=== PATIENT | female | born 1985 | race Hispanic/Latino ===

== ENCOUNTER 2021-08-10 12:19 | Emergency (ER) | payer SELFPAY ==
[~2021-08-10] VITALS: Ht 144.8 cm; Wt 63.0 kg
[~2021-08-10 12:19] MED LIST: GLYBURIDE5 MG PO; INTEGRA F PO; PRENATABS OR
[2021-08-10 13:00] LABS: URINE BILIRUBIN - DIPSTICK NEGATIVE (NEGATIVE); URINE BLOOD DIPSTICK MODERATE (NEGATIVE); URINE COLOR YELLOW; URINE GLUCOSE - DIPSTICK NEGATIVE (NEGATIVE); URINE KETONE NEGATIVE (NEGATIVE); URINE LEUK ESTERASE NEGATIVE (NEGATIVE); URINE PROTEIN - DIPSTICK TRACE mg/dL (NEG-TRACE); URINE UROBILINOGEN - DIPSTICK 0.2 E.U./dL (0.2)
[2021-08-10 13:03] LABS: URINE NITRITE - DIPSTICK NEGATIVE (Negative)
[2021-08-10 13:09] LABS: URINE SQUAMOUS EPITHELIAL CELL FEW EPI/hpf (0-FEW); URINE WBC 0-2 WBC/hpf (0-5)
[2021-08-10] MEDS ORDERED: IBUPROFEN600 MG PO (16:30)
[2021-08-10 16:40] VITALS: BP 121/64
== END 2021-08-10 16:40 | disposition home or self-care (01) | DRG 552 ==
LOC: ED 12:19
PROVIDERS: Family Medicine
DX: M54.50 Low back pain, unspecified (principal); W10.9XXA Fall (on) (from) unspecified stairs and steps, initial encounter

== ENCOUNTER 2021-09-15 10:12 | Emergency (ER) | payer SELFPAY ==
[~2021-09-15] VITALS: Ht 144.8 cm; Wt 65.9 kg
[~2021-09-15 10:12] MED LIST changes: +IBUPROFEN600 MG PO
[2021-09-15 10:30] VITALS: BP 119/53
[2021-09-15 11:42] LABS: HEMATOCRIT 37.7 % (37.0-47.0); HEMOGLOBIN 12.1 g/dl (12.0-16.0); IMMATURE GRANULOCYTES 0.5 % (0.0-5.0); MEAN CORPUSCULAR HGB 29.5 pG CALC (26.0-32.0); MEAN CORPUSCULAR HGB CONC 32.1 g/dL CAL (32.0-36.0); NEUT# 6.72 thou/uL (2.00-7.15); RED BLOOD COUNT 4.1 mill/uL (4.20-5.60); RED CELL DISTRI WIDTH 13.2 % (11.5-15.5)
[2021-09-15 11:51] LABS: ALKALINE PHOSPHATASE 97 u/l (38-126); BUN 13 mg/dL (7-17); BUN/CREATININE RATIO 23 (12-20 (CALC)); CHLORIDE 103 mmol/l (95-108); CREATININE 0.6 mg/dL (0.5-1.0); GFR > 60 ML/MIN (>=60 (CALC)); GFR FOR AFR.AMER. > 60 ML/MIN (>=60 (CALC)); POTASSIUM 3.8 mmol/l (3.5-5.1); SODIUM 138 mmol/l (137-146)
[2021-09-15 11:55] LABS: ALBUMIN 3.9 g/dL (3.2-5.0); ANION GAP 11 (6-22 (CALC)); BILIRUBIN, TOTAL 0.3 mg/dL (0.0-1.4); CARBON DIOXIDE 28 mmol/l (22-30); SGOT/AST 39 u/l (14-36); TOTAL PROTEIN 7.5 g/dL (6.3-8.2)
[2021-09-15] MEDS ORDERED: CYCLOBENZAPRINE10 MG PO (12:22)
== END 2021-09-15 12:46 | disposition home or self-care (01) | DRG 93 ==
LOC: ED 10:12
PROVIDERS: Emergency Medicine
DX: R25.2 Cramp and spasm (principal); R23.3 Spontaneous ecchymoses

== ENCOUNTER 2023-09-19 22:22 | Emergency (ER) | payer SELFPAY ==
[~2023-09-19] VITALS: Ht 144.8 cm; Wt 54.4 kg
[~2023-09-19 22:22] MED LIST changes: +CYCLOBENZAPRINE10 MG PO
[2023-09-19 22:28] VITALS: BP 126/69
[2023-09-19 22:30] VITALS: BP 116/66
[2023-09-19 22:52] LABS: BASO% 0.5 % (0-3); EOS% 6.3 % (0-8); HEMATOCRIT 38.9 % (37.0-47.0); HEMOGLOBIN 12.7 g/dl (12.0-16.0); IMMATURE GRANULOCYTES 0.3 % (0.0-5.0); LYMPH% 21.7 % (15-41); MEAN CELL VOLUME 92.2 fL CALC (80.0-100.0); MEAN CORPUSCULAR HGB 30.1 pG CALC (26.0-32.0); MEAN CORPUSCULAR HGB CONC 32.6 g/dL CAL (32.0-36.0); MONO% 7.1 % (2-13); NEUT# 7.7 thou/uL (2.00-7.15); NEUT% 64.1 % (42-76); RED BLOOD COUNT 4.22 mill/uL (4.20-5.60); RED CELL DISTRI WIDTH 13.2 % (11.5-15.5)
[2023-09-19 23:00] VITALS: BP 114/69
[2023-09-19 23:02] LABS: ALBUMIN 4.3 g/dL (3.2-5.0); ALKALINE PHOSPHATASE 86 u/l (38-126); BILIRUBIN, TOTAL 0.2 mg/dL (0.02-1.3); BUN 13 mg/dL (7-17); BUN/CREATININE RATIO 18 (12-20 (CALC)); CHLORIDE 106 mmol/l (95-108); CREATININE 0.7 mg/dL (0.5-1.0); GFR FOR AFR.AMER. > 60 ML/MIN (>=60 (CALC)); GFR OTHER RACES > 60 ML/MIN (>=60 (CALC)); POTASSIUM 3.8 mmol/l (3.5-5.1); SODIUM 140 mmol/l (137-146); TOTAL PROTEIN 7.6 g/dL (6.3-8.2)
[2023-09-19 23:07] LABS: ANION GAP 16 (6-22 (CALC)); CARBON DIOXIDE 22 mmol/l (22-30); SGOT/AST 78 u/l (14-36)
[2023-09-19 23:15] VITALS: BP 103/62
[2023-09-19 23:30] VITALS: BP 101/55
[2023-09-19 23:45] VITALS: BP 99/60
[2023-09-20] VITALS: BP 97/55
[2023-09-20 00:16] VITALS: BP 108/68
[2023-09-20 02:42] VITALS: BP 110/67
== END 2023-09-20 02:42 | disposition home or self-care (01) | DRG 313 ==
LOC: ED 22:22
PROVIDERS: Internal Medicine
DX: R07.9 Chest pain, unspecified (principal)

== ENCOUNTER 2023-10-16 19:10 | Emergency (ER) | payer SELFPAY ==
[~2023-10-16] VITALS: Ht 144.8 cm; Wt 67.1 kg
[2023-10-16] VITALS (7 sets, daily range): BP systolic 93–116; BP diastolic 45–61
== END 2023-10-16 21:41 | disposition home or self-care (01) | DRG 563 ==
LOC: ED 19:10
DX: S83.92XA Sprain of unspecified site of left knee, initial encounter (principal); S83.91XA Sprain of unspecified site of right knee, initial encounter; M25.532 Pain in left wrist; W01.0XXA Fall on same level from slipping, tripping and stumbling without subsequent striking against object, initial encounter; Y92.009 Unspecified place in unspecified non-institutional (private) residence as the place of occurrence of the external cause